=== PATIENT | male | born 1980 | race Caucasian/White ===

== ENCOUNTER 2018-09-25 13:24 | Outpatient (CLI) | payer OTHER ==
--- NOTE | 2018-09-25 14:52 | MRI ---
MRI lumbar spine noncontrast: DATE: 09/25/2018 HISTORY: 38-year-old male with chronic low back pain and lumbar degenerative disc disease. COMPARISON: 03/01/2060 FINDINGS: For the purposes of this report, it will be assumed that there are 5 lumbar-type vertebrae. Conus med ullaris terminates at L2. No high-grade facet DJD. Vertebral body heights are maintained. No major spondylolisthesis. T12-L1:Essentially normal L1-2:Mild disc space narrowing. No central stenosis or neural foraminal stenosis. L2-3:Normal L3-4:No central stenosis or high-grade neural foraminal stenosis. L4-5:On the previous MRI, there was a left paracentral and left lateral focal disc herniation that wa s posteriorly displacing the left L5 nerve root. This has regressed and almost completely resolved. Currently, there is midline posterior annular fissure. No central stenosis. No displacement of nerve roots. Mild to moderate disc space narrowing. No neural foraminal stenosis. L5-S1:Moderate type I change at inferior endplate of L5 is unchanged. Mild to moderate disc space rock rowing. Right paracentral-lateral and left lateral annular fissure views associated with minimal disc protrusions. Both abut the bilateral S1 1 no evidence at the lateral recesses without displacing them. No central stenosis. No high-grade neural foraminal stenosis. IMPRESSION: 1) mild degenerative disc disease at L4-5 and L5-S1. 2) no high-grade central stenosis or high-grade neural foraminal stenosis at any level.
== END 2018-09-25 13:25 | disposition home or self-care (01) ==
LOC: SCSMRI 13:24
PROVIDERS: ATTEND Neurological Surgery
DX: M51.36 Other intervertebral disc degeneration, lumbar region (principal); M51.37 Other intervertebral disc degeneration, lumbosacral region
CPT/HCPCS: 72148

== ENCOUNTER 2020-07-24 10:29 | Outpatient (CLI) | payer BC | END 2020-07-24 10:30 | disposition home or self-care (01) | LOC: BICRAD 10:29 | PROVIDERS: ATTEND Family Medicine | DX: M25.511 Pain in right shoulder (principal); M25.512 Pain in left shoulder; G89.4 Chronic pain syndrome ==

== ENCOUNTER 2022-03-24 08:19 | Outpatient (CLI) | payer BC | END 2022-03-24 08:20 | disposition home or self-care (01) | LOC: MRI 08:19 | PROVIDERS: ATTEND Nurse Practitioner Family | DX: R10.32 Left lower quadrant pain (principal); M79.652 Pain in left thigh; R60.0 Localized edema | CPT/HCPCS: 72195 ==